=== PATIENT | female | born 2005 | race Caucasian/White ===

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

== ENCOUNTER 2024-07-15 21:56 | Inpatient (IN) ==
--- OUTSIDE RECORDS SUMMARY | 2024-07-15 22:02 | External Medical Summary ---
Author Name Unknown Address Unknown Organization R1WR:[facility] [address] [place] [address] Laboratory Report Ordering Provider Test Date Status EDMAR CRYSTAL 06/17/2024 04:29:00 Final Observation Date Value Abnormality Reference (Units ) Status WBC 06/17/2024 05:36 9.4 4.0-10.0 (X10E+09/L) Final RBC 06/17/2024 05:36 3.50 Below low normal 3.9-5.2 (X10E+12/L) Final Hemoglobin 06/17/2024 05:36 10.5 Below low normal 11.2-15.7 (g/dL) Final Hematocrit 06/17/2024 05:36 31.7 Below low normal 34-45 (%) Final MCV 06/17/2024 05:36 90.6 79-98 (fL) Final MCH 06/17/2024 05:36 30.0 26.0-32.0 (pg) Final MCHC 06/17/2024 05:36 33.1 32-36 (g/dL) Final Platelets 06/17/2024 05:36 233 150-370 (X10E+09/L) Final RDW 06/17/2024 05:36 14.0 11.7-14.4 (%) Final Neutrophils 06/17/2024 05:36 58.6 34.0-71.1 (%) Final Lymphocytes 06/17/2024 05:36 32.8 19.3-51.7 (%) Final Monocytes 06/17/2024 05:36 5.3 4.7-12.5 (%) Final Eosinophils 06/17/2024 05:36 3.0 0.7-5.8 (%) Final Basophils 06/17/2024 05:36 0.3 0.1-1.2 (%) Final Absolute Neutrophils 06/17/2024 05:36 5.48 1.6-6.1 (X10E+09/L) Final Absolute Lymphocytes 06/17/2024 05:36 3.07 1.2-3.7 (X10E+09/L) Final Absolute Monocytes 06/17/2024 05:36 0.50 0.2-0.9 (X10E+09/L) Final Absolute Eosinophils 06/17/2024 05:36 0.28 0.0-0.4 (X10E+09/L) Final Absolute Basophils 06/17/2024 05:36 0.03 0.0-0.1 (X10E+09/L) Final Absolute NRBC 06/17/2024 05:36 0.02 Above high normal 0 (X10E+09/L) Final Nucleated RBC 06/17/2024 05:36 0.2 0.0-0.2 (/100 WBC) Final Performing Location [facility] [address] [place] [address]
--- OUTSIDE RECORDS SUMMARY | 2024-07-15 22:02 | External Medical Summary ---
Author Name Unknown Address Unknown Organization R1WR:[facility] [address] [place] [address] Laboratory Report Ordering Provider Test Date Status BRANDON METZGER 07/09/2024 04:33:00 Final Observation Date Value Abnormality Reference (Units ) Status WBC 07/09/2024 04:55 9.6 4.0-10.0 (X10E+09/L) Final RBC 07/09/2024 04:55 3.01 Below low normal 3.9-5.2 (X10E+12/L) Final Hemoglobin 07/09/2024 04:55 8.5 Below low normal 11.2-15.7 (g/dL) Final Hematocrit 07/09/2024 04:55 27.3 Below low normal 34-45 (%) Final MCV 07/09/2024 04:55 90.7 79-98 (fL) Final MCH 07/09/2024 04:55 28.2 26.0-32.0 (pg) Final MCHC 07/09/2024 04:55 31.1 Below low normal 32-36 (g/dL) Final Platelets 07/09/2024 04:55 471 Above high normal 150-370 (X10E+09/L) Final RDW 07/09/2024 04:55 14.5 Above high normal 11.7-14.4 (%) Final Neutrophils 07/09/2024 04:55 63.4 34.0-71.1 (%) Final Lymphocytes 07/09/2024 04:55 26.5 19.3-51.7 (%) Final Monocytes 07/09/2024 04:55 7.0 4.7-12.5 (%) Final Eosinophils 07/09/2024 04:55 2.2 0.7-5.8 (%) Final Basophils 07/09/2024 04:55 0.9 0.1-1.2 (%) Final Absolute Neutrophils 07/09/2024 04:55 6.09 1.6-6.1 (X10E+09/L) Final Absolute Lymphocytes 07/09/2024 04:55 2.54 1.2-3.7 (X10E+09/L) Final Absolute Monocytes 07/09/2024 04:55 0.67 0.2-0.9 (X10E+09/L) Final Absolute Eosinophils 07/09/2024 04:55 0.21 0.0-0.4 (X10E+09/L) Final Absolute Basophils 07/09/2024 04:55 0.09 0.0-0.1 (X10E+09/L) Final Absolute NRBC 07/09/2024 04:55 0.00 0 (X10E+09/L) Final Nucleated RBC 07/09/2024 04:55 0.0 0.0-0.2 (/100 WBC) Final Performing Location [facility] [address] [place] [address]
--- OUTSIDE RECORDS SUMMARY | 2024-07-15 22:02 | External Medical Summary ---
Author Name Unknown Address Unknown Organization R1WR:[facility] [address] [place] [address] Laboratory Report Ordering Provider Test Date Status MAHNAZ MICHAEL 07/02/2024 05:50:00 Carla l Observation Date Value Abnormality Reference (Units ) Status WBC 07/02/2024 06:36 10.8 Above high normal 4.0-10.0 (X10E+09/L) Final RBC 07/02/2024 06:36 3.22 Below low normal 3.9-5.2 (X10E+12/L) Final Hemoglobin 07/02/2024 06:36 9.4 Below low normal 11.2-15.7 (g/dL) Final Hematocrit 07/02/2024 06:36 30.0 Below low normal 34-45 (%) Final MCV 07/02/2024 06:36 93.2 79-98 (fL) Final MCH 07/02/2024 06:36 29.2 26.0-32.0 (pg) Final MCHC 07/02/2024 06:36 31.3 Below low normal 32-36 (g/dL) Final Platelets 07/02/2024 06:36 574 Above high normal 150-370 (X10E+09/L) Final RDW 07/02/2024 06:36 15.0 Above high normal 11.7-14.4 (%) Final Neutrophils 07/02/2024 06:36 79.2 Above high normal 34.0-71.1 (%) Final Lymphocytes 07/02/2024 06:36 12.0 Below low normal 19.3-51.7 (%) Final Monocytes 07/02/2024 06:36 6.2 4.7-12.5 (%) Final Eosinophils 07/02/2024 06:36 1.6 0.7-5.8 (%) Final Basophils 07/02/2024 06:36 1.0 0.1-1.2 (%) Final Absolute Neutrophils 07/02/2024 06:36 8.52 Above high normal 1.6-6.1 (X10E+09/L) Final Absolute Lymphocytes 07/02/2024 06:36 1.29 1.2-3.7 (X10E+09/L) Final Absolute Monocytes 07/02/2024 06:36 0.67 0.2-0.9 (X10E+09/L) Final Absolute Eosinophils 07/02/2024 06:36 0.17 0.0-0.4 (X10E+09/L) Final Absolute Basophils 07/02/2024 06:36 0.11 Above high normal 0.0-0.1 (X10E+09/L) Final Absolute NRBC 07/02/2024 06:36 0.00 0 (X10E+09/L) Final Nucleated RBC 07/02/2024 06:36 0.0 0.0-0.2 (/100 WBC) Final Performing Location [facility] [address] [place] [address]
--- OUTSIDE RECORDS SUMMARY | 2024-07-15 22:02 | External Medical Summary ---
Author Name Unknown Address Unknown Organization R1WR:[facility] [address] [place] [address] Laboratory Report Ordering Provider Test Date Status ELISA MIGUEL III 07/15/2024 10:52:00 Final Observation Date Value Abnormality Reference (Units ) Status WBC 07/15/2024 11:48 10.0 4.0-10.0 (X10E+09/L) Final RBC 07/15/2024 11:48 3.31 Below low normal 3.9-5.2 (X10E+12/L) Final Hemoglobin 07/15/2024 11:48 8.9 Below low normal 11.2-15.7 (g/dL) Final Hematocrit 07/15/2024 11:48 28.7 Below low normal 34-45 (%) Final MCV 07/15/2024 11:48 86.7 79-98 (fL) Final MCH 07/15/2024 11:48 26.9 26.0-32.0 (pg) Final MCHC 07/15/2024 11:48 31.0 Below low normal 32-36 (g/dL) Final Platelets 07/15/2024 11:48 445 Above high normal 150-370 (X10E+09/L) Final RDW 07/15/2024 11:48 14.7 Above high normal 11.7-14.4 (%) Final Neutrophils 07/15/2024 11:48 72.8 Above high normal 34.0-71.1 (%) Final Lymphocytes 07/15/2024 11:48 20.3 19.3-51.7 (%) Final Monocytes 07/15/2024 11:48 4.7 4.7-12.5 (%) Final Eosinophils 07/15/2024 11:48 1.7 0.7-5.8 (%) Final Basophils 07/15/2024 11:48 0.5 0.1-1.2 (%) Final Absolute Neutrophils 07/15/2024 11:48 7.30 Above high normal 1.6-6.1 (X10E+09/L) Final Absolute Lymphocytes 07/15/2024 11:48 2.03 1.2-3.7 (X10E+09/L) Final Absolute Monocytes 07/15/2024 11:48 0.47 0.2-0.9 (X10E+09/L) Final Absolute Eosinophils 07/15/2024 11:48 0.17 0.0-0.4 (X10E+09/L) Final Absolute Basophils 07/15/2024 11:48 0.05 0.0-0.1 (X10E+09/L) Final Absolute NRBC 07/15/2024 11:48 0.00 0 (X10E+09/L) Final Nucleated RBC 07/15/2024 11:48 0.0 0.0-0.2 (/100 WBC) Final Performing Location [facility] [address] [place] [address]
--- OUTSIDE RECORDS SUMMARY | 2024-07-15 22:02 | External Medical Summary ---
Author Name Unknown Address Unknown Organization R1WR:[facility] [address] [place] [address] Laboratory Report Ordering Provider Test Date Status EDMRA CRYSTAL 06/16/2024 06:35:00 Final Observation Date Value Abnormality Reference (Units ) Status Magnesium 06/16/2024 07:09 1.8 1.6-2.6 (mg/d L) Final Performing Location [facility] [address] [place] [address]
--- OUTSIDE RECORDS SUMMARY | 2024-07-15 22:02 | External Medical Summary ---
Author Name Unknown Address Unknown Organization R1WR:[facility] [address] [place] [address] Laboratory Report Ordering Provider Test Date Status JOY MELENDEZ 06/17/2024 12:45:00 Final Observation Date Value Abnormality Reference (Units ) Status Urine Clarity 06/17/2024 14:34 Clear CLER Final Urine Color 06/17/2024 14:34 Yellow YELL Final Specific [place], Urine 06/17/2024 14:34 1.029 Above high normal 1.000-1.025 Final Urine pH 06/17/2024 14:34 7.0 5.0-8.0 Final Urine Leukocyte Esterase 06/17/2024 14:34 Negative NEGAT Final Urine Nitrites 06/17/2024 14:34 Negative NEGAT Final Protein, Urine 06/17/2024 14:34 Negative NEGAT (mg/dL) Final Glucose, Urine 06/17/2024 14:34 Negative NEGAT (mg/dL) Final Urine Ketones 06/17/2024 14:34 Negative NEGAT Final Urine Urobilinogen 06/17/2024 14:34 1.0 0.0-1.0 (mg/dL) Final The total absence of urobili nogen cannot be detected. Values up to 1 mg/dL are usually considered normal. Urine Bilirubin 06/17/2024 14:34 Negative NEGAT Final Blood, Urine 06/17/2024 14:34 Negative NEGAT Final Urine WBC 06/17/2024 14:34 0 0-5 (/hpf) Fi nal Urine RBC 06/17/2024 14:34 0 0-4 (/hpf) Fi nal Urine Bacteria 06/17/2024 14:34 None NONE (/h pf) Final Epithelial Cells 06/17/2024 14:34 7 Above high eugenio l 0-5 (/lpf) Final Urine Casts 06/17/2024 14:34 1 Above high normal 0 ( /lpf) Final Casts are considered Hyaline Casts unless otherwise noted. Performing Location [facility] [address] [place] [address]
--- OUTSIDE RECORDS SUMMARY | 2024-07-15 22:02 | External Medical Summary ---
Author Name Unknown Address Unknown Organization R1WR:[facility] [address] [place] [address] Laboratory Report Ordering Provider Test Date Status JULIOMARELY 06/14/2024 05:32:00 Final Observation Date Value Abnormality Reference (Units ) Status Vitamin D 25-Hydroxy 06/14/2024 06:11 17 Below low no rmal 30-100 (ng/mL) Final Deficiency: <20 ng/mL Insuff iciency: 20-29 ng/mL Sufficiency: 30-100 ng/mL Performing Location [facility] [address] [place] [address]
--- OUTSIDE RECORDS SUMMARY | 2024-07-15 22:02 | External Medical Summary ---
Author Name Unknown Address Unknown Organization R1WR:[facility] [address] [place] [address] Laboratory Report Ordering Provider Test Date Status EDMAR CRYSTAL 06/16/2024 06:35:00 Final Observation Date Value Abnormality Reference (Units ) Status Phosphorus 06/16/2024 07:09 2.8 2.5-4.6 (mg/ dL) Final Performing Location [facility] [address] [place] [address]
--- OUTSIDE RECORDS SUMMARY | 2024-07-15 22:02 | External Medical Summary ---
Author Name Unknown Address Unknown Organization R1WR:[facility] [address] [place] [address] Laboratory Report Ordering Provider Test Date Status BRANDON METZGER 07/10/2024 04:34:00 Final Observation Date Value Abnormality Reference (Units ) Status WBC 07/10/2024 05:17 10.6 Above high normal 4.0-10.0 (X10E+09/L) Final RBC 07/10/2024 05:17 3.11 Below low normal 3.9-5.2 (X10E+12/L) Final Hemoglobin 07/10/2024 05:17 8.7 Below low normal 11.2-15.7 (g/dL) Final Hematocrit 07/10/2024 05:17 27.9 Below low normal 34-45 (%) Final MCV 07/10/2024 05:17 89.7 79-98 (fL) Final MCH 07/10/2024 05:17 28.0 26.0-32.0 (pg) Final MCHC 07/10/2024 05:17 31.2 Below low normal 32-36 (g/dL) Final Platelets 07/10/2024 05:17 495 Above high normal 150-370 (X10E+09/L) Final RDW 07/10/2024 05:17 14.6 Above high normal 11.7-14.4 (%) Final Neutrophils 07/10/2024 05:17 65.9 34.0-71.1 (%) Final Lymphocytes 07/10/2024 05:17 25.1 19.3-51.7 (%) Final Monocytes 07/10/2024 05:17 6.0 4.7-12.5 (%) Final Eosinophils 07/10/2024 05:17 2.2 0.7-5.8 (%) Final Basophils 07/10/2024 05:17 0.8 0.1-1.2 (%) Final Absolute Neutrophils 07/10/2024 05:17 6.98 Above high normal 1.6-6.1 (X10E+09/L) Final Absolute Lymphocytes 07/10/2024 05:17 2.66 1.2-3.7 (X10E+09/L) Final Absolute Monocytes 07/10/2024 05:17 0.64 0.2-0.9 (X10E+09/L) Final Absolute Eosinophils 07/10/2024 05:17 0.23 0.0-0.4 (X10E+09/L) Final Absolute Basophils 07/10/2024 05:17 0.08 0.0-0.1 (X10E+09/L) Final Absolute NRBC 07/10/2024 05:17 0.00 0 (X10E+09/L) Final Nucleated RBC 07/10/2024 05:17 0.0 0.0-0.2 (/100 WBC) Final Performing Location [facility] [address] [place] [address]
--- OUTSIDE RECORDS SUMMARY | 2024-07-15 22:02 | External Medical Summary ---
Author Name Unknown Address Unknown Organization R1WR:[facility] [address] [place] [address] Laboratory Report Ordering Provider Test Date Status BRANDON METZGER 07/10/2024 04:34:00 Final Observation Date Value Abnormality Reference (Units ) Status Glucose 07/10/2024 05:36 97 70-99 (mg/dL) Final The reference interval for F asting glucose is 70 to 99. The reference interval for Random Glucose is 70 to 139. BUN 07/10/2024 05:36 12 9-23 (mg/dL) Final Creatinine 07/10/2024 05:36 0.50 Below low normal 0.55- 1.02 (mg/dL) Final eGFR 07/10/2024 05:36 137 >59 (mL/min/1 .73m2) Final eGFR = 142 X [min(Scr/k,1)]* *a [max(Scr/k,1)-1.200x0.9938age X 1.012 [if female] Where Scr is serum creatinine; k is 0.7 for females and 0.9 males; a is -0.241 for females and -0.302 for males; min indicates the minimum of Scr/k or 1, max indicates the maximum of Scr/k or 1 Sodium 07/10/2024 05:36 135 Below low normal 136-14 5 (mmol/L) Final Potassium 07/10/2024 05:36 4.2 3.4-5.0 (mmol /L) Final Chloride 07/10/2024 05:36 99 98-112 (mmol/ L) Final CO2 07/10/2024 05:36 27 20-31 (mmol/L ) Final Anion Gap 07/10/2024 05:36 13 6-15 (mmol/L) Final Calcium 07/10/2024 05:36 10.0 8.3-10.6 (mg/ dL) Final Performing Location [facility] [address] [place] [address]
--- OUTSIDE RECORDS SUMMARY | 2024-07-15 22:02 | External Medical Summary ---
Author Name Unknown Address Unknown Organization R1WR:[facility] [address] [place] [address] Laboratory Report Ordering Provider Test Date Status EDMAR CRYSTAL 06/17/2024 04:29:00 Final Observation Date Value Abnormality Reference (Units ) Status Glucose 06/17/2024 05:57 80 70-99 (mg/dL) Final The reference interval for F asting glucose is 70 to 99. The reference interval for Random Glucose is 70 to 139. BUN 06/17/2024 05:57 15 9-23 (mg/dL) Final Creatinine 06/17/2024 05:57 0.61 0.55-1.02 (m g/dL) Final eGFR 06/17/2024 05:57 131 >59 (mL/min/1 .73m2) Final eGFR = 142 X [min(Scr/k,1)]* *a [max(Scr/k,1)-1.200x0.9938age X 1.012 [if female] Where Scr is serum creatinine; k is 0.7 for females and 0.9 males; a is -0.241 for females and -0.302 for males; min indicates the minimum of Scr/k or 1, max indicates the maximum of Scr/k or 1 Sodium 06/17/2024 05:57 142 136-145 (mmol /L) Final Potassium 06/17/2024 05:57 3.6 3.4-5.0 (mmol /L) Final Chloride 06/17/2024 05:57 105 98-112 (mmol/ L) Final CO2 06/17/2024 05:57 32 Above high normal 20-31 (mmol/L) Final Anion Gap 06/17/2024 05:57 9 6-15 (mmol/L) Final Calcium 06/17/2024 05:57 8.8 8.3-10.6 (mg/ dL) Final Performing Location [facility] [address] [place] [address]
--- OUTSIDE RECORDS SUMMARY | 2024-07-15 22:02 | External Medical Summary ---
Author Name Unknown Address Unknown Organization R1WR:[facility] [address] [place] [address] Laboratory Report Ordering Provider Test Date Status EDMAR CRYSTAL 06/17/2024 04:29:00 Final Observation Date Value Abnormality Reference (Units ) Status Magnesium 06/17/2024 05:57 1.8 1.6-2.6 (mg/d L) Final Performing Location [facility] [address] [place] [address]
--- OUTSIDE RECORDS SUMMARY | 2024-07-15 22:02 | External Medical Summary ---
Author Name Unknown Address Unknown Organization R1WR:[facility] [address] [place] [address] Laboratory Report Ordering Provider Test Date Status EDMAR CRYSTAL 06/15/2024 08:57:00 Final Observation Date Value Abnormality Reference (Units ) Status Glucose 06/15/2024 09:45 166 Above high normal 70-99 (mg/dL) Final The reference interval for F asting glucose is 70 to 99. The reference interval for Random Glucose is 70 to 139. BUN 06/15/2024 09:45 8 Below low normal 9-23 ( mg/dL) Final Creatinine 06/15/2024 09:45 0.55 0.55-1.02 (m g/dL) Final eGFR 06/15/2024 09:45 134 >59 (mL/min/1 .73m2) Final eGFR = 142 X [min(Scr/k,1)]* *a [max(Scr/k,1)-1.200x0.9938age X 1.012 [if female] Where Scr is serum creatinine; k is 0.7 for females and 0.9 males; a is -0.241 for females and -0.302 for males; min indicates the minimum of Scr/k or 1, max indicates the maximum of Scr/k or 1 Sodium 06/15/2024 09:45 139 136-145 (mmol /L) Final Potassium 06/15/2024 09:45 3.9 3.4-5.0 (mmol /L) Final Chloride 06/15/2024 09:45 106 98-112 (mmol/ L) Final CO2 06/15/2024 09:45 29 20-31 (mmol/L ) Final Anion Gap 06/15/2024 09:45 8 6-15 (mmol/L) Final Calcium 06/15/2024 09:45 8.7 8.3-10.6 (mg/ dL) Final Performing Location [facility] [address] [place] [address]
--- OUTSIDE RECORDS SUMMARY | 2024-07-15 22:02 | External Medical Summary ---
Author Name Unknown Address Unknown Organization R1WR:[facility] [address] [place] [address] Laboratory Report Ordering Provider Test Date Status MARELY KIM 06/14/2024 05:32:00 Final Observation Date Value Abnormality Reference (Units ) Status Magnesium 06/14/2024 06:11 2.2 1.6-2.6 (mg/d L) Final Performing Location [facility] [address] [place] [address]
--- OUTSIDE RECORDS SUMMARY | 2024-07-15 22:02 | External Medical Summary ---
Author Name Unknown Address Unknown Organization R1WR:[facility] [address] [place] [address] Laboratory Report Ordering Provider Test Date Status BRANDON METZGER 07/08/2024 06:55:00 Final Observation Date Value Abnormality Reference (Units ) Status WBC 07/08/2024 07:21 10.0 4.0-10.0 (X10E+09/L) Final RBC 07/08/2024 07:21 3.03 Below low normal 3.9-5.2 (X10E+12/L) Final Hemoglobin 07/08/2024 07:21 8.7 Below low normal 11.2-15.7 (g/dL) Final Hematocrit 07/08/2024 07:21 27.4 Below low normal 34-45 (%) Final MCV 07/08/2024 07:21 90.4 79-98 (fL) Final MCH 07/08/2024 07:21 28.7 26.0-32.0 (pg) Final MCHC 07/08/2024 07:21 31.8 Below low normal 32-36 (g/dL) Final Platelets 07/08/2024 07:21 466 Above high normal 150-370 (X10E+09/L) Final RDW 07/08/2024 07:21 14.5 Above high normal 11.7-14.4 (%) Final Neutrophils 07/08/2024 07:21 67.5 34.0-71.1 (%) Final Lymphocytes 07/08/2024 07:21 24.0 19.3-51.7 (%) Final Monocytes 07/08/2024 07:21 5.6 4.7-12.5 (%) Final Eosinophils 07/08/2024 07:21 2.2 0.7-5.8 (%) Final Basophils 07/08/2024 07:21 0.7 0.1-1.2 (%) Final Absolute Neutrophils 07/08/2024 07:21 6.72 Above high normal 1.6-6.1 (X10E+09/L) Final Absolute Lymphocytes 07/08/2024 07:21 2.39 1.2-3.7 (X10E+09/L) Final Absolute Monocytes 07/08/2024 07:21 0.56 0.2-0.9 (X10E+09/L) Final Absolute Eosinophils 07/08/2024 07:21 0.22 0.0-0.4 (X10E+09/L) Final Absolute Basophils 07/08/2024 07:21 0.07 0.0-0.1 (X10E+09/L) Final Absolute NRBC 07/08/2024 07:21 0.00 0 (X10E+09/L) Final Nucleated RBC 07/08/2024 07:21 0.0 0.0-0.2 (/100 WBC) Final Performing Location [facility] [address] [place] [address]
--- OUTSIDE RECORDS SUMMARY | 2024-07-15 22:02 | External Medical Summary ---
Author Name Unknown Address Unknown Organization R1WR:[facility] [address] [place] [address] Laboratory Report Ordering Provider Test Date Status EDMAR CRYSTAL 06/18/2024 06:43:00 Final Observation Date Value Abnormality Reference (Units ) Status Glucose 06/18/2024 07:26 95 70-99 (mg/dL) Final The reference interval for F asting glucose is 70 to 99. The reference interval for Random Glucose is 70 to 139. BUN 06/18/2024 07:26 10 9-23 (mg/dL) Final Creatinine 06/18/2024 07:26 0.58 0.55-1.02 (m g/dL) Final eGFR 06/18/2024 07:26 133 >59 (mL/min/1 .73m2) Final eGFR = 142 X [min(Scr/k,1)]* *a [max(Scr/k,1)-1.200x0.9938age X 1.012 [if female] Where Scr is serum creatinine; k is 0.7 for females and 0.9 males; a is -0.241 for females and -0.302 for males; min indicates the minimum of Scr/k or 1, max indicates the maximum of Scr/k or 1 Sodium 06/18/2024 07:26 136 136-145 (mmol /L) Final Potassium 06/18/2024 07:26 4.2 3.4-5.0 (mmol /L) Final Chloride 06/18/2024 07:26 100 98-112 (mmol/ L) Final CO2 06/18/2024 07:26 30 20-31 (mmol/L ) Final Anion Gap 06/18/2024 07:26 10 6-15 (mmol/L) Final Calcium 06/18/2024 07:26 9.3 8.3-10.6 (mg/ dL) Final Performing Location [facility] [address] [place] [address]
--- OUTSIDE RECORDS SUMMARY | 2024-07-15 22:02 | External Medical Summary ---
Author Name Unknown Address Unknown Organization R1WR:[facility] [address] [place] [address] Laboratory Report Ordering Provider Test Date Status EDMAR CRYSTAL 06/15/2024 08:57:00 Final Observation Date Value Abnormality Reference (Units ) Status Phosphorus 06/15/2024 09:45 2.6 2.5-4.6 (mg/ dL) Final Performing Location [facility] [address] [place] [address]
--- OUTSIDE RECORDS SUMMARY | 2024-07-15 22:02 | External Medical Summary ---
Author Name Unknown Address Unknown Organization R1WR:[facility] [address] [place] [address] Laboratory Report Ordering Provider Test Date Status EDMAR CRYSTAL 06/18/2024 06:43:00 Final Observation Date Value Abnormality Reference (Units ) Status WBC 06/18/2024 07:17 11.4 Above high normal 4.0-1 0.0 (X10E+09/L) Final Slide checked and on file. RBC 06/18/2024 07:17 3.59 Below low normal 3.9-5. 2 (X10E+12/L) Final Hemoglobin 06/18/2024 07:17 10.9 Below low normal 11.2- 15.7 (g/dL) Final Hematocrit 06/18/2024 07:17 32.3 Below low normal 34-45 (%) Final MCV 06/18/2024 07:17 90.0 79-98 (fL) Fi nal MCH 06/18/2024 07:17 30.4 26.0-32.0 (pg ) Final MCHC 06/18/2024 07:17 33.7 32-36 (g/dL) Final Platelets 06/18/2024 07:17 269 150-370 (X10E +09/L) Final RDW 06/18/2024 07:17 13.7 11.7-14.4 (%) Final Neutrophils 06/18/2024 07:17 69.6 34.0-71.1 ( %) Final Lymphocytes 06/18/2024 07:17 22.4 19.3-51.7 ( %) Final Monocytes 06/18/2024 07:17 4.4 Below low normal 4.7-12 .5 (%) Final Eosinophils 06/18/2024 07:17 3.4 0.7-5.8 (%) Final Basophils 06/18/2024 07:17 0.2 0.1-1.2 (%) F inal Absolute Neutrophils 06/18/2024 07:17 7.97 Abo ve high normal 1.6-6.1 (X10E+09/L) Final Absolute Lymphocytes 06/18/2024 07:17 2.56 1. 2-3.7 (X10E+09/L) Final Absolute Monocytes 06/18/2024 07:17 0.50 0.2- 0.9 (X10E+09/L) Final Absolute Eosinophils 06/18/2024 07:17 0.39 0. 0-0.4 (X10E+09/L) Final Absolute Basophils 06/18/2024 07:17 0.02 0.0- 0.1 (X10E+09/L) Final Absolute NRBC 06/18/2024 07:17 0.00 0 (X10E+0 9/L) Final Nucleated RBC 06/18/2024 07:17 0.0 0.0-0.2 ( /100 WBC) Final Performing Location [facility] [address] [place] [address]
--- OUTSIDE RECORDS SUMMARY | 2024-07-15 22:02 | External Medical Summary ---
Author Name Unknown Address Unknown Organization R1WR:[facility] [address] [place] [address] Laboratory Report Ordering Provider Test Date Status MARELY KIM 06/14/2024 05:32:00 Final Observation Date Value Abnormality Reference (Units ) Status WBC 06/14/2024 05:49 8.0 4.0-10.0 (X10E+09/L) Final RBC 06/14/2024 05:49 3.26 Below low normal 3.9-5.2 (X10E+12/L) Final Hemoglobin 06/14/2024 05:49 9.7 Below low normal 11.2-15.7 (g/dL) Final Hematocrit 06/14/2024 05:49 28.8 Below low normal 34-45 (%) Final MCV 06/14/2024 05:49 88.3 79-98 (fL) Final MCH 06/14/2024 05:49 29.8 26.0-32.0 (pg) Final MCHC 06/14/2024 05:49 33.7 32-36 (g/dL) Final Platelets 06/14/2024 05:49 176 150-370 (X10E+09/L) Final RDW 06/14/2024 05:49 14.4 11.7-14.4 (%) Final Neutrophils 06/14/2024 05:49 72.0 Above high normal 34.0-71.1 (%) Final Lymphocytes 06/14/2024 05:49 20.3 19.3-51.7 (%) Final Monocytes 06/14/2024 05:49 7.2 4.7-12.5 (%) Final Eosinophils 06/14/2024 05:49 0.4 Below low normal 0.7-5.8 (%) Final Basophils 06/14/2024 05:49 0.1 0.1-1.2 (%) Final Absolute Neutrophils 06/14/2024 05:49 5.73 1.6-6.1 (X10E+09/L) Final Absolute Lymphocytes 06/14/2024 05:49 1.61 1.2-3.7 (X10E+09/L) Final Absolute Monocytes 06/14/2024 05:49 0.57 0.2-0.9 (X10E+09/L) Final Absolute Eosinophils 06/14/2024 05:49 0.03 0.0-0.4 (X10E+09/L) Final Absolute Basophils 06/14/2024 05:49 0.01 0.0-0.1 (X10E+09/L) Final Absolute NRBC 06/14/2024 05:49 0.00 0 (X10E+09/L) Final Nucleated RBC 06/14/2024 05:49 0.0 0.0-0.2 (/100 WBC) Final Performing Location [facility] [address] [place] [address]
--- OUTSIDE RECORDS SUMMARY | 2024-07-15 22:02 | External Medical Summary ---
Author Name Unknown Address Unknown Organization R1WR:[facility] [address] [place] [address] Laboratory Report Ordering Provider Test Date Status NATANAEL DE LA FUENTE 07/06/2024 19:10:00 Final Observation Date Value Abnormality Reference (Units ) Status Specimen Description 07/06/2024 21:12 Wound Final Special Requests 07/06/2024 21:12 L KNEE SURGICAL WD Final Culture 07/08/2024 13:33 No Anaerobes isolated Final Report Status 07/08/2024 13:33 Final Result 07/08/2024 Final Performing Location [facility] [address] [place] [address]
--- OUTSIDE RECORDS SUMMARY | 2024-07-15 22:02 | External Medical Summary ---
Author Name Unknown Address Unknown Organization R1WR:[facility] [address] [place] [address] Laboratory Report Ordering Provider Test Date Status EDMAR CRYSTAL 06/16/2024 06:35:00 Final Observation Date Value Abnormality Reference (Units ) Status Glucose 06/16/2024 07:09 86 70-99 (mg/dL) Final The reference interval for F asting glucose is 70 to 99. The reference interval for Random Glucose is 70 to 139. BUN 06/16/2024 07:09 12 9-23 (mg/dL) Final Creatinine 06/16/2024 07:09 0.60 0.55-1.02 (m g/dL) Final eGFR 06/16/2024 07:09 132 >59 (mL/min/1 .73m2) Final eGFR = 142 X [min(Scr/k,1)]* *a [max(Scr/k,1)-1.200x0.9938age X 1.012 [if female] Where Scr is serum creatinine; k is 0.7 for females and 0.9 males; a is -0.241 for females and -0.302 for males; min indicates the minimum of Scr/k or 1, max indicates the maximum of Scr/k or 1 Sodium 06/16/2024 07:09 141 136-145 (mmol /L) Final Potassium 06/16/2024 07:09 3.5 3.4-5.0 (mmol /L) Final Chloride 06/16/2024 07:09 106 98-112 (mmol/ L) Final CO2 06/16/2024 07:09 31 20-31 (mmol/L ) Final Anion Gap 06/16/2024 07:09 7 6-15 (mmol/L) Final Calcium 06/16/2024 07:09 8.5 8.3-10.6 (mg/ dL) Final Performing Location [facility] [address] [place] [address]
--- OUTSIDE RECORDS SUMMARY | 2024-07-15 22:02 | External Medical Summary ---
Author Name Unknown Address Unknown Organization R1WR:[facility] [address] [place] [address] Laboratory Report Ordering Provider Test Date Status MARELY KIM 06/14/2024 05:32:00 Final Observation Date Value Abnormality Reference (Units ) Status Glucose 06/14/2024 06:11 110 Above high normal 70-99 (mg/dL) Final The reference interval for F asting glucose is 70 to 99. The reference interval for Random Glucose is 70 to 139. BUN 06/14/2024 06:11 7 Below low normal 9-23 ( mg/dL) Final Creatinine 06/14/2024 06:11 0.54 Below low normal 0.55- 1.02 (mg/dL) Final eGFR 06/14/2024 06:11 135 >59 (mL/min/1 .73m2) Final eGFR = 142 X [min(Scr/k,1)]* *a [max(Scr/k,1)-1.200x0.9938age X 1.012 [if female] Where Scr is serum creatinine; k is 0.7 for females and 0.9 males; a is -0.241 for females and -0.302 for males; min indicates the minimum of Scr/k or 1, max indicates the maximum of Scr/k or 1 Sodium 06/14/2024 06:11 143 136-145 (mmol /L) Final Potassium 06/14/2024 06:11 3.6 3.4-5.0 (mmol /L) Final Chloride 06/14/2024 06:11 108 98-112 (mmol/ L) Final CO2 06/14/2024 06:11 29 20-31 (mmol/L ) Final Anion Gap 06/14/2024 06:11 9 6-15 (mmol/L) Final Calcium 06/14/2024 06:11 8.5 8.3-10.6 (mg/ dL) Final Performing Location [facility] [address] [place] [address]
--- OUTSIDE RECORDS SUMMARY | 2024-07-15 22:02 | External Medical Summary ---
Author Name Unknown Address Unknown Organization R1WR:[facility] [address] [place] [address] Laboratory Report Ordering Provider Test Date Status BRANDON METZGER 07/08/2024 06:55:00 Final Observation Date Value Abnormality Reference (Units ) Status Glucose 07/08/2024 07:34 102 Above high normal 70-99 (mg/dL) Final The reference interval for F asting glucose is 70 to 99. The reference interval for Random Glucose is 70 to 139. BUN 07/08/2024 07:34 10 9-23 (mg/dL) Final Creatinine 07/08/2024 07:34 0.43 Below low normal 0.55- 1.02 (mg/dL) Final eGFR 07/08/2024 07:34 142 >59 (mL/min/1 .73m2) Final eGFR = 142 X [min(Scr/k,1)]* *a [max(Scr/k,1)-1.200x0.9938age X 1.012 [if female] Where Scr is serum creatinine; k is 0.7 for females and 0.9 males; a is -0.241 for females and -0.302 for males; min indicates the minimum of Scr/k or 1, max indicates the maximum of Scr/k or 1 Sodium 07/08/2024 07:34 137 136-145 (mmol /L) Final Potassium 07/08/2024 07:34 4.1 3.4-5.0 (mmol /L) Final Chloride 07/08/2024 07:34 102 98-112 (mmol/ L) Final CO2 07/08/2024 07:34 28 20-31 (mmol/L ) Final Anion Gap 07/08/2024 07:34 11 6-15 (mmol/L) Final Calcium 07/08/2024 07:34 9.4 8.3-10.6 (mg/ dL) Final Performing Location [facility] [address] [place] [address]
--- OUTSIDE RECORDS SUMMARY | 2024-07-15 22:02 | External Medical Summary ---
Author Name Unknown Address Unknown Organization R1WR:[facility] [address] [place] [address] Laboratory Report Ordering Provider Test Date Status EDMAR CRYSTAL 06/15/2024 08:57:00 Final Observation Date Value Abnormality Reference (Units ) Status Magnesium 06/15/2024 09:45 2.1 1.6-2.6 (mg/d L) Final Performing Location [facility] [address] [place] [address]
--- OUTSIDE RECORDS SUMMARY | 2024-07-15 22:02 | External Medical Summary ---
Author Name Unknown Address Unknown Organization R1WR:[facility] [address] [place] [address] Laboratory Report Ordering Provider Test Date Status ELISA MIGUEL III 07/15/2024 10:52:00 Final Observation Date Value Abnormality Reference (Units ) Status Glucose 07/15/2024 12:07 122 Above high normal 70-99 (mg/dL) Final The reference interval for F asting glucose is 70 to 99. The reference interval for Random Glucose is 70 to 139. BUN 07/15/2024 12:07 10 9-23 (mg/dL) Final Creatinine 07/15/2024 12:07 0.52 Below low normal 0.55- 1.02 (mg/dL) Final eGFR 07/15/2024 12:07 136 >59 (mL/min/1 .73m2) Final eGFR = 142 X [min(Scr/k,1)]* *a [max(Scr/k,1)-1.200x0.9938age X 1.012 [if female] Where Scr is serum creatinine; k is 0.7 for females and 0.9 males; a is -0.241 for females and -0.302 for males; min indicates the minimum of Scr/k or 1, max indicates the maximum of Scr/k or 1 Sodium 07/15/2024 12:07 137 136-145 (mmol /L) Final Potassium 07/15/2024 12:07 4.0 3.4-5.0 (mmol /L) Final Chloride 07/15/2024 12:07 100 98-112 (mmol/ L) Final CO2 07/15/2024 12:07 27 20-31 (mmol/L ) Final Anion Gap 07/15/2024 12:07 14 6-15 (mmol/L) Final Calcium 07/15/2024 12:07 10.0 8.3-10.6 (mg/ dL) Final Total Protein 07/15/2024 12:07 7.5 5.7-8.2 ( g/dL) Final Albumin 07/15/2024 12:07 2.8 Below low normal 3.4-5. 0 (g/dL) Final Bilirubin, Total 07/15/2024 12:07 0.2 0.0-0. 8 (mg/dL) Final AST 07/15/2024 12:07 9 Below low normal 13-40 (U/L) Final ALT 07/15/2024 12:07 16 7-40 (U/L) Fi nal Alkaline Phosphatase 07/15/2024 12:07 118 Above high n ormal 46-116 (U/L) Final Performing Location [facility] [address] [place] [address]
--- OUTSIDE RECORDS SUMMARY | 2024-07-15 22:02 | External Medical Summary ---
Author Name Unknown Address Unknown Organization R1WR:[facility] [address] [facility] [place] [address] Laboratory Report Ordering Provider Test Date Status NATANAEL DE LA FUENTE 07/06/2024 19:10:00 Final Observation Date Value Abnormality Reference (Units ) Status Specimen Description 07/06/2024 21:12 Wound Final Special Requests 07/06/2024 21:12 L KNEE SURGICAL WD Final Gram Stain 07/07/2024 07:21 1+ Polys Final No organisms present Culture 07/07/2024 10:58 2+ Serratia marcescens Final Report Status 07/08/2024 08:50 Final Result 07/08/2024 Final Organism 07/08/2024 08:50 2+ Serratia marcescens Final METHOD 07/08/2024 08:50 Microscan GEOVANI-u g/ml (SARAH) Final Cefepime 07/08/2024 08:50 <=2 Sensitive Susceptible Final Ceftazidime 07/08/2024 08:50 <=1 Sensitive Susceptible Final Ceftriaxone 07/08/2024 08:50 <=1 Sensitive Susceptible Final Ciprofloxacin 07/08/2024 08:50 <=0.25 Sensitive Susceptible Final Ertapenem 07/08/2024 08:50 <=0.5 Sensitive Susceptible Final Gentamicin 07/08/2024 08:50 <=2 Sensitive Susceptible Final Levofloxacin 07/08/2024 08:50 <=0.5 Sensitive Susceptible Final Meropenem 07/08/2024 08:50 <=1 Sensitive Susceptible Final Piperacillin/Tazobactam 07/08/2024 08:50 <=8 Sensitive Susce ptible Final Tetracycline 07/08/2024 08:50 >8 Resistant Resistant Final Tobramycin 07/08/2024 08:50 4 Sensitive Susceptible Final Sulfa/Trimethoprim 07/08/2024 08:50 <=0.5/9.5 Sensitive Susc eptible Final Performing Location [facility] [address] [place] [address]
--- OUTSIDE RECORDS SUMMARY | 2024-07-15 22:02 | External Medical Summary ---
Author Name Unknown Address Unknown Organization R1WR:[facility] [address] [place] [address] Laboratory Report Ordering Provider Test Date Status BRANDON METZGER 07/09/2024 04:33:00 Final Observation Date Value Abnormality Reference (Units ) Status Vitamin D 25-Hydroxy 07/09/2024 05:14 34 30 -100 (ng/mL) Final Deficiency: <20 ng/mL Insuff iciency: 20-29 ng/mL Sufficiency: 30-100 ng/mL Performing Location [facility] [address] [place] [address]
--- OUTSIDE RECORDS SUMMARY | 2024-07-15 22:02 | External Medical Summary ---
Author Name Unknown Address Unknown Organization R1WR:[facility] [address] [place] [address] Laboratory Report Ordering Provider Test Date Status EDMAR CRYSTAL 06/16/2024 06:35:00 Final Observation Date Value Abnormality Reference (Units ) Status WBC 06/16/2024 06:43 9.0 4.0-10.0 (X10E+09/L) Final RBC 06/16/2024 06:43 3.37 Below low normal 3.9-5.2 (X10E+12/L) Final Hemoglobin 06/16/2024 06:43 10.2 Below low normal 11.2-15.7 (g/dL) Final Hematocrit 06/16/2024 06:43 30.4 Below low normal 34-45 (%) Final MCV 06/16/2024 06:43 90.2 79-98 (fL) Final MCH 06/16/2024 06:43 30.3 26.0-32.0 (pg) Final MCHC 06/16/2024 06:43 33.6 32-36 (g/dL) Final Platelets 06/16/2024 06:43 218 150-370 (X10E+09/L) Final RDW 06/16/2024 06:43 13.7 11.7-14.4 (%) Final Neutrophils 06/16/2024 06:43 58.9 34.0-71.1 (%) Final Lymphocytes 06/16/2024 06:43 33.2 19.3-51.7 (%) Final Monocytes 06/16/2024 06:43 5.3 4.7-12.5 (%) Final Eosinophils 06/16/2024 06:43 1.7 0.7-5.8 (%) Final Basophils 06/16/2024 06:43 0.9 0.1-1.2 (%) Final Absolute Neutrophils 06/16/2024 06:43 5.29 1.6-6.1 (X10E+09/L) Final Absolute Lymphocytes 06/16/2024 06:43 2.98 1.2-3.7 (X10E+09/L) Final Absolute Monocytes 06/16/2024 06:43 0.48 0.2-0.9 (X10E+09/L) Final Absolute Eosinophils 06/16/2024 06:43 0.15 0.0-0.4 (X10E+09/L) Final Absolute Basophils 06/16/2024 06:43 0.08 0.0-0.1 (X10E+09/L) Final Absolute NRBC 06/16/2024 06:43 0.04 Above high normal 0 (X10E+09/L) Final Nucleated RBC 06/16/2024 06:43 0.4 Above high normal 0.0-0.2 (/100 WBC) Final Performing Location [facility] [address] [place] [address]
--- OUTSIDE RECORDS SUMMARY | 2024-07-15 22:02 | External Medical Summary ---
Author Name Unknown Address Unknown Organization R1WR:[facility] [address] [place] [address] Laboratory Report Ordering Provider Test Date Status BRANDON METZGER 07/09/2024 04:33:00 Final Observation Date Value Abnormality Reference (Units ) Status Glucose 07/09/2024 05:07 102 Above high normal 70-99 (mg/dL) Final The reference interval for F asting glucose is 70 to 99. The reference interval for Random Glucose is 70 to 139. BUN 07/09/2024 05:07 11 9-23 (mg/dL) Final Creatinine 07/09/2024 05:07 0.42 Below low normal 0.55- 1.02 (mg/dL) Final eGFR 07/09/2024 05:07 143 >59 (mL/min/1 .73m2) Final eGFR = 142 X [min(Scr/k,1)]* *a [max(Scr/k,1)-1.200x0.9938age X 1.012 [if female] Where Scr is serum creatinine; k is 0.7 for females and 0.9 males; a is -0.241 for females and -0.302 for males; min indicates the minimum of Scr/k or 1, max indicates the maximum of Scr/k or 1 Sodium 07/09/2024 05:07 138 136-145 (mmol /L) Final Potassium 07/09/2024 05:07 4.3 3.4-5.0 (mmol /L) Final Chloride 07/09/2024 05:07 102 98-112 (mmol/ L) Final CO2 07/09/2024 05:07 28 20-31 (mmol/L ) Final Anion Gap 07/09/2024 05:07 13 6-15 (mmol/L) Final Calcium 07/09/2024 05:07 9.6 8.3-10.6 (mg/ dL) Final Performing Location [facility] [address] [place] [address]
--- OUTSIDE RECORDS SUMMARY | 2024-07-15 22:02 | External Medical Summary ---
Author Name Unknown Address Unknown Organization R1WR:[facility] [address] [place] [address] Laboratory Report Ordering Provider Test Date Status MARELY KIM 06/14/2024 05:32:00 Final Observation Date Value Abnormality Reference (Units ) Status Phosphorus 06/14/2024 06:11 2.7 2.5-4.6 (mg/ dL) Final Performing Location [facility] [address] [place] [address]
--- OUTSIDE RECORDS SUMMARY | 2024-07-15 22:02 | External Medical Summary ---
Author Name Unknown Address Unknown Organization R1WR:[facility] [address] [place] [address] Laboratory Report Ordering Provider Test Date Status EDMAR CRYSTAL 06/15/2024 08:57:00 Final Observation Date Value Abnormality Reference (Units ) Status WBC 06/15/2024 09:27 8.1 4.0-10.0 (X10E+09/L) Final RBC 06/15/2024 09:27 3.34 Below low normal 3.9-5.2 (X10E+12/L) Final Hemoglobin 06/15/2024 09:27 10.0 Below low normal 11.2-15.7 (g/dL) Final Hematocrit 06/15/2024 09:27 30.3 Below low normal 34-45 (%) Final MCV 06/15/2024 09:27 90.7 79-98 (fL) Final MCH 06/15/2024 09:27 29.9 26.0-32.0 (pg) Final MCHC 06/15/2024 09:27 33.0 32-36 (g/dL) Final Platelets 06/15/2024 09:27 199 150-370 (X10E+09/L) Final RDW 06/15/2024 09:27 13.6 11.7-14.4 (%) Final Neutrophils 06/15/2024 09:27 83.6 Above high normal 34.0-71.1 (%) Final Lymphocytes 06/15/2024 09:27 12.2 Below low normal 19.3-51.7 (%) Final Monocytes 06/15/2024 09:27 3.8 Below low normal 4.7-12.5 (%) Final Eosinophils 06/15/2024 09:27 0.0 Below low normal 0.7-5.8 (%) Final Basophils 06/15/2024 09:27 0.4 0.1-1.2 (%) Final Absolute Neutrophils 06/15/2024 09:27 6.74 Above high normal 1.6-6.1 (X10E+09/L) Final Absolute Lymphocytes 06/15/2024 09:27 0.98 Below low normal 1.2-3.7 (X10E+09/L) Final Absolute Monocytes 06/15/2024 09:27 0.31 0.2-0.9 (X10E+09/L) Final Absolute Eosinophils 06/15/2024 09:27 0.00 0.0-0.4 (X10E+09/L) Final Absolute Basophils 06/15/2024 09:27 0.03 0.0-0.1 (X10E+09/L) Final Absolute NRBC 06/15/2024 09:27 0.00 0 (X10E+09/L) Final Nucleated RBC 06/15/2024 09:27 0.0 0.0-0.2 (/100 WBC) Final Performing Location [facility] [address] [place] [address]
--- OUTSIDE RECORDS SUMMARY | 2024-07-15 22:02 | External Medical Summary ---
Author Name Unknown Address Unknown Organization R1WR:[facility] [address] [place] [address] Laboratory Report Ordering Provider Test Date Status EDMAR CRYSTAL 06/18/2024 06:43:00 Final Observation Date Value Abnormality Reference (Units ) Status Magnesium 06/18/2024 07:26 1.9 1.6-2.6 (mg/d L) Final Performing Location [facility] [address] [place] [address]
--- OUTSIDE RECORDS SUMMARY | 2024-07-15 22:02 | External Medical Summary ---
Author Name Unknown Address Unknown Organization R1WR:[facility] [address] [place] [address] Laboratory Report Ordering Provider Test Date Status EDMAR CRYSTAL 06/17/2024 04:29:00 Final Observation Date Value Abnormality Reference (Units ) Status Phosphorus 06/17/2024 05:57 4.6 2.5-4.6 (mg/ dL) Final Performing Location [facility] [address] [place] [address]
--- OUTSIDE RECORDS SUMMARY | 2024-07-15 22:03 | External Medical Summary ---
Author Name Unknown Address Unknown Organization R1WR:[facility] [address] [place] [address] Laboratory Report Ordering Provider Test Date Status EDMAR CRYSTAL 06/13/2024 08:40:00 Final Observation Date Value Abnormality Reference (Units ) Status WBC 06/13/2024 08:53 7.9 4.0-10.0 (X10E+09/L) Final RBC 06/13/2024 08:53 3.60 Below low normal 3.9-5.2 (X10E+12/L) Final Hemoglobin 06/13/2024 08:53 10.9 Below low normal 11.2-15.7 (g/dL) Final Hematocrit 06/13/2024 08:53 32.1 Below low normal 34-45 (%) Final MCV 06/13/2024 08:53 89.2 79-98 (fL) Final MCH 06/13/2024 08:53 30.3 26.0-32.0 (pg) Final MCHC 06/13/2024 08:53 34.0 32-36 (g/dL) Final Platelets 06/13/2024 08:53 176 150-370 (X10E+09/L) Final RDW 06/13/2024 08:53 14.4 11.7-14.4 (%) Final Absolute NRBC 06/13/2024 08:53 0.00 0 (X10E+09/L) Final Absolute Neutrophils 06/13/2024 08:53 6.71 Above high normal 1.6-6.1 (X10E+09/L) Final Absolute Lymphocytes 06/13/2024 08:53 0.73 Below low normal 1.2-3.7 (X10E+09/L) Final Absolute Monocytes 06/13/2024 08:53 0.39 0.2-0.9 (X10E+09/L) Final Absolute Eosinophils 06/13/2024 08:53 0.00 0.0-0.4 (X10E+09/L) Final Absolute Basophils 06/13/2024 08:53 0.02 0.0-0.1 (X10E+09/L) Final Nucleated RBC 06/13/2024 08:53 0.0 0.0-0.2 (/100 WBC) Final Neutrophils 06/13/2024 08:53 84.6 Above high normal 34.0-71.1 (%) Final Lymphocytes 06/13/2024 08:53 9.3 Below low normal 19.3-51.7 (%) Final Monocytes 06/13/2024 08:53 5.0 4.7-12.5 (%) Final Eosinophils 06/13/2024 08:53 0.0 Below low normal 0.7-5.8 (%) Final Basophils 06/13/2024 08:53 0.3 0.1-1.2 (%) Final Performing Location [facility] [address] [place] [address]
--- OUTSIDE RECORDS SUMMARY | 2024-07-15 22:03 | External Medical Summary ---
Author Name Unknown Address Unknown Organization R1WR:[facility] [address] [place] [address] Laboratory Report Ordering Provider Test Date Status EDMAR CRYSTAL 06/13/2024 08:40:00 Final Observation Date Value Abnormality Reference (Units ) Status Glucose 06/13/2024 09:15 160 Above high normal 70-99 (mg/dL) Final The reference interval for F asting glucose is 70 to 99. The reference interval for Random Glucose is 70 to 139. BUN 06/13/2024 09:15 <5 Below low normal 9-23 ( mg/dL) Final Creatinine 06/13/2024 09:15 0.61 0.55-1.02 (m g/dL) Final eGFR 06/13/2024 09:15 131 >59 (mL/min/1 .73m2) Final eGFR = 142 X [min(Scr/k,1)]* *a [max(Scr/k,1)-1.200x0.9938age X 1.012 [if female] Where Scr is serum creatinine; k is 0.7 for females and 0.9 males; a is -0.241 for females and -0.302 for males; min indicates the minimum of Scr/k or 1, max indicates the maximum of Scr/k or 1 Sodium 06/13/2024 09:15 139 136-145 (mmol /L) Final Potassium 06/13/2024 09:15 3.7 3.4-5.0 (mmol /L) Final Hemolysis: Results may be ad versely affected. Recommend recollect. Chloride 06/13/2024 09:15 108 98-112 (mmol/ L) Final CO2 06/13/2024 09:15 24 20-31 (mmol/L ) Final Anion Gap 06/13/2024 09:15 11 6-15 (mmol/L) Final Calcium 06/13/2024 09:15 8.6 8.3-10.6 (mg/ dL) Final Performing Location [facility] [address] [place] [address]
--- OUTSIDE RECORDS SUMMARY | 2024-07-15 22:03 | External Medical Summary ---
Author Name Unknown Address Unknown Organization R1WR:[facility] [address] [place] [address] Laboratory Report Ordering Provider Test Date Status NAMAN BOYD 06/12/2024 16:50:00 Final Observation Date Value Abnormality Reference (Units ) Status Lactic Acid 06/12/2024 17:15 1.9 0.4-2.0 (mm ol/L) Final If the time between specimen collection and laboratory receipt is 30 minutes or greater, the lactate result may be falsely elevated. The laboratory recommends sample recollection and analysis. Performing Location [facility] [address] [place] [address]
--- OUTSIDE RECORDS SUMMARY | 2024-07-15 22:03 | External Medical Summary ---
Author Name Unknown Address Unknown Organization R1WR:[facility] [address] [place] [address] Laboratory Report Ordering Provider Test Date Status EDMAR CRYSTAL 06/13/2024 08:40:00 Final Observation Date Value Abnormality Reference (Units ) Status Phosphorus 06/13/2024 09:15 2.3 Below low normal 2.5-4 .6 (mg/dL) Final Performing Location [facility] [address] [place] [address]
--- OUTSIDE RECORDS SUMMARY | 2024-07-15 22:03 | External Medical Summary ---
Author Name Unknown Address Unknown Organization R1WR:[facility] [address] [place] [address] Laboratory Report Ordering Provider Test Date Status EDMAR CRYSTAL 06/13/2024 08:40:00 Final Observation Date Value Abnormality Reference (Units ) Status Magnesium 06/13/2024 09:15 1.9 1.6-2.6 (mg/d L) Final Performing Location [facility] [address] [place] [address]
[2024-07-15] MEDS: ONDANSETRON INJ 2 MG/ML 2 ML VIAL IV STA (22:44)
[2024-07-15] MEDS: fentaNYL citrate PF 100 MCG/2 ML VIAL IV PRN (22:45)
[2024-07-15 22:56] LABS: Basophils # (auto) 0.05 K/uL (0.00-0.20); Basophils % (auto) 0.5 %; Eosinophils # (auto) 0.16 K/uL (0.00-0.50); Eosinophils % (auto) 1.5 %; Hematocrit (blood only) 31.1 % (37.0-47.0); Hemoglobin 9.5 g/dl (12.0-16.0); Immature Granulocytes # (auto) 0.23 K/uL (0.01-0.20); Immature Granulocytes % (auto) 2.1 %; Lymphocytes # (auto) 2.26 K/uL (1.20-3.40); Lymphocytes % (auto) 20.6 %; Mean Corpuscular Hemoglobin 26.7 pg (25.0-34.0); Mean Corpuscular Hgb Conc 30.5 g/dL (32.0-36.0); Mean Corpuscular Volume 87.4 fL (80.0-100.0); Mean Platelet Volume 8.5 fL (9.4-12.4); Monocytes % (auto) 5.5 %; Neutrophils # (auto) 7.68 K/uL (1.40-6.50); Neutrophils % (auto) 69.8 %; Platelet Count 503 K/uL (130-400); RDW Coefficient of Variation 14.5 % (11.5-14.5); RDW Standard Deviation 46.6 fL (36.4-46.3); Red Blood Count 3.56 M/uL (4.20-5.40); White Blood Count 10.98 K/ul (4.8-10.8)
[2024-07-15 23:08] LABS: Pregnancy Test, Serum Negative (Negative)
[2024-07-15 23:12] LABS: Alanine Aminotransferase 13 U/L (7-52); Albumin Globulin Ratio 0.9 (0.9-2); Albumin Level 3.8 gm/dl (3.4-5.0); Alkaline Phosphatase 104 U/L (34-104); Anion Gap 13 (3-11); Aspartate Aminotransferase 11 U/L (13-39); Bilirubin,Total 0.3 mg/dl (0.2-1.0); Blood Urea Nitrogen 11 mg/dl (6-23); Calcium 9.7 mg/dl (8.6-10.3); Carbon Dioxide 26 mmol/L (21-32); Chloride 98 mmol/L (98-107); Creatine Kinase 32 U/L (26-192); Est GFR (African American) > 150.0 ml/min; Est GFR (Non-African American) 139.3 ml/min; Globulin 4.2 gm/dl (2.5-4.0); Glucose 110 mg/dl (70-99(Fasting)); Magnesium 1.8 mg/dl (1.7-2.4); Sodium 137 mmol/L (136-145)
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
[2024-07-16] MEDS: hydrOXYzine HCl 25 MG TAB PO STA (03:24)
[2024-07-16 04:49] LABS: Amorphous Sediment Urine Present (None Prsent); Appearance Urine Turbid (Clear); Bacteria Urine Automated 1+ (None Seen); Bilirubin Urine Negative (Negative); Blood Urine Negative (Negative); Cast Urine Automated 0-2 /lpf (0-2); Color Urine Yellow; Epithelial Cell Urine Auto 0-2 /hpf (0-2); Glucose Urine UA Negative (Negative); Ketones Urine Negative (Negative); Leukocyte Esterase Urine 3+ (Negative); Nitrite Urine Negative (Negative); Protein Urine Trace (Negative); Specific Gravity Urine 1.023 (1.000-1.030); Urobilinogen Urine Negative (Negative); WBC Urine Automated >50 /hpf (0-5)
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
[2024-07-16] MEDS ORDERED: POLYETHYLENE (MIRALAX) 17 GM PACK PO PRN (06:23)
[2024-07-16] MEDS: HYDROmorphone INJ 0.5 MG/0.5 ML SYR IV PRN (07:33)
[2024-07-16] MEDS: SODIUM CHLORIDE 0.9% 1,000 ML IV SCH (08:01)
[2024-07-16] MEDS: APIXABAN 2.5 MG TAB PO SCH (09:13)
[2024-07-16] MEDS: METHOCARBAMOL 750 MG TABLET PO SCH (09:13)
[2024-07-16] MEDS: TAMSULOSIN HCL 0.4 MG CAP PO SCH (09:14)
[2024-07-16] MEDS: SERTRALINE HCL 100 MG TABLET PO SCH (09:14)
[2024-07-16] MEDS: ATOMOXETINE HCL 10 MG CAPSULE PO SCH (09:14)
[2024-07-16] MEDS: hydrOXYzine HCl 25 MG TAB PO SCH (09:14)
[2024-07-16] MEDS: ACETAMINOPHEN 500 MG TAB PO SCH (09:18)
--- NOTE | 2024-07-16 10:29 | Communication Note ---
Date of Service: July 16, 2024 Patient seen Drowsy but arousable. Stated back pain is well controlled at this time Reports only right knee pain at this time Reported she had surgery on left knee, was then discharged to [facility] and then had surgery on right knee and was just discharged to [facility] but presents yesterday for worsening back and right knee pain. Has dressing and brace on right knee Continue pain control Will consult Ortho spine tomorrow regarding fractures noted on spine. Get records from facility Other plans as detailed in H/P this AM
[2024-07-16] MEDS: levoFLOXacin 750 MG TAB PO SCH (11:54)
[2024-07-16] MEDS: ONDANSETRON INJ 2 MG/ML 2 ML VIAL IV PRN (13:59)
[2024-07-16] MEDS: oxyCODONE HCL IR 5 MG TAB (IMMEDIATE RELEASE) PO PRN (18:49)
[2024-07-16] MEDS: DOXEPIN HCL 50 MG CAPSULE PO SCH (20:10)
[2024-07-16] MEDS: DOCUSATE SODIUM/SENNA 50/8.6MG TAB PO SCH (20:10)
[2024-07-17 06:25] LABS: Basophils # (auto) 0.03 K/uL (0.00-0.20); Basophils % (auto) 0.4 %; Eosinophils # (auto) 0.13 K/uL (0.00-0.50); Eosinophils % (auto) 1.6 %; Hematocrit (blood only) 27.6 % (37.0-47.0); Hemoglobin 8.7 g/dl (12.0-16.0); Immature Granulocytes # (auto) 0.16 K/uL (0.01-0.20); Immature Granulocytes % (auto) 1.9 %; Lymphocytes # (auto) 1.86 K/uL (1.20-3.40); Lymphocytes % (auto) 22.6 %; Mean Corpuscular Hemoglobin 27.5 pg (25.0-34.0); Mean Corpuscular Hgb Conc 31.5 g/dL (32.0-36.0); Mean Corpuscular Volume 87.3 fL (80.0-100.0); Mean Platelet Volume 8.5 fL (9.4-12.4); Monocytes # (auto) 0.54 K/uL (0.11-0.59); Monocytes % (auto) 6.6 %; Neutrophils # (auto) 5.51 K/uL (1.40-6.50); Neutrophils % (auto) 66.9 %; Platelet Count 463 K/uL (130-400); RDW Coefficient of Variation 14.7 % (11.5-14.5); RDW Standard Deviation 47.5 fL (36.4-46.3); Red Blood Count 3.16 M/uL (4.20-5.40); White Blood Count 8.23 K/ul (4.8-10.8)
[2024-07-17 06:30] LABS: Anion Gap 10 (3-11); BUN Creatinine Ratio 18.8 (10-20); Blood Urea Nitrogen 9 mg/dl (6-23); Calcium 9.5 mg/dl (8.6-10.3); Carbon Dioxide 28 mmol/L (21-32); Chloride 101 mmol/L (98-107); Creatinine Clr Calc Pharmacy 211.5 ml/min; Est GFR (African American) > 150.0 ml/min; Est GFR (Non-African American) 141.2 ml/min; Glucose 96 mg/dl (70-99(Fasting)); Magnesium 1.9 mg/dl (1.7-2.4); Potassium 3.7 mmol/L (3.5-5.1); Sodium 139 mmol/L (136-145)
[2024-07-17 07:45] LABS: Estimated Average Glucose 128 mg/dl; Hemoglobin A1C 6.1 % (4.5-5.6)
[2024-07-17] MEDS ORDERED: oxyCODONE HCL IR 5 MG TAB (IMMEDIATE RELEASE) PO PRN (07:51)
[2024-07-17] MEDS: oxyCODONE HCL IR 5 MG TAB (IMMEDIATE RELEASE) PO PRN (08:09)
[2024-07-17] MEDS: ERGOCALCIFEROL 1250 MCG (50,000 UNITS) CAP PO SCH (08:13)
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
--- NOTE | 2024-07-18 06:17 | Electrocardiogram Report ---
Test Reason : Blood Pressure : */* mmHG Vent. Rate : 102 BPM Atrial Rate : 102 BPM P-R Int : 140 ms QRS Dur : 82 ms QT Int : 358 ms P-R-T Axes : 30 54 19 degrees QTcB Int : 466 ms Sinus tachycardia Otherwise normal ECG When compared with ECG of 07-Aug-2023 21:10, No significant change was found Confirmed by Mikey Balderas ([id number]) on 07/18/2024 6:16:55 AM Referred By: REFERRED SELF Confirmed By: Mikey Balderas
[2024-07-18 08:50] LABS: Hematocrit (blood only) 27.5 % (37.0-47.0); Hemoglobin 8.7 g/dl (12.0-16.0); Mean Corpuscular Hemoglobin 27.1 pg (25.0-34.0); Mean Corpuscular Hgb Conc 31.6 g/dL (32.0-36.0); Mean Corpuscular Volume 85.7 fL (80.0-100.0); Mean Platelet Volume 8.4 fL (9.4-12.4); Platelet Count 481 K/uL (130-400); RDW Coefficient of Variation 14.9 % (11.5-14.5); Red Blood Count 3.21 M/uL (4.20-5.40)
[2024-07-18 08:59] LABS: Anion Gap 12 (3-11); BUN Creatinine Ratio 19.2 (10-20); Blood Urea Nitrogen 10 mg/dl (6-23); Calcium 9.4 mg/dl (8.6-10.3); Carbon Dioxide 25 mmol/L (21-32); Chloride 100 mmol/L (98-107); Creatinine Clr Calc Pharmacy 195.2 ml/min; Est GFR (African American) > 150.0 ml/min; Est GFR (Non-African American) 137.5 ml/min; Glucose 145 mg/dl (70-99(Fasting)); Potassium 3.9 mmol/L (3.5-5.1); Sodium 137 mmol/L (136-145)
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
[2024-07-18] MEDS: LIDOCAINE 5% 1 PATCH TD SCH (13:16)
[2024-07-18] MEDS: HYDROmorphone INJ 0.5 MG/0.5 ML SYR IV PRN (18:41)
[2024-07-19 05:58] LABS: Hematocrit (blood only) 27.2 % (37.0-47.0); Hemoglobin 8.6 g/dl (12.0-16.0); Mean Corpuscular Hemoglobin 27.7 pg (25.0-34.0); Mean Corpuscular Hgb Conc 31.6 g/dL (32.0-36.0); Mean Corpuscular Volume 87.5 fL (80.0-100.0); Mean Platelet Volume 8.4 fL (9.4-12.4); Platelet Count 491 K/uL (130-400); RDW Coefficient of Variation 15.1 % (11.5-14.5); RDW Standard Deviation 48.1 fL (36.4-46.3); Red Blood Count 3.11 M/uL (4.20-5.40); White Blood Count 8.71 K/ul (4.8-10.8)
[2024-07-19 06:07] LABS: Anion Gap 10 (3-11); BUN Creatinine Ratio 17.3 (10-20); Blood Urea Nitrogen 9 mg/dl (6-23); Calcium 9.5 mg/dl (8.6-10.3); Carbon Dioxide 27 mmol/L (21-32); Chloride 99 mmol/L (98-107); Creatinine Clr Calc Pharmacy 195.2 ml/min; Est GFR (African American) > 150.0 ml/min; Est GFR (Non-African American) 137.5 ml/min; Glucose 99 mg/dl (70-99(Fasting)); Potassium 3.9 mmol/L (3.5-5.1); Sodium 136 mmol/L (136-145)
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
[2024-07-21 07:52] VITALS: BP 103/56; RESP 17; TEMP 98.4; O2SAT 94
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
[2024-07-21 12:04] VITALS: PULSE 99
== END 2024-07-21 13:13 | DRG 552 ==
LOC: ED 21:56 → 3E 07-16 05:06 → SUATTDRO 07-16 05:06 → 3E 07-16 05:45

== ENCOUNTER 2024-07-24 19:16 | Observation (INO) ==
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
[2024-07-24 19:49] LABS: iSTAT Creatinine 0.4 mg/dl; iSTAT Hemoglobin 10.9 g/dl (12.0-16.0); iSTAT Ionized Calcium 1.16 mmol/l; iSTAT Potassium 3.5 mmol/L (3.3-5.0)
[2024-07-24 19:59] LABS: Alanine Aminotransferase 10 U/L (7-52); Albumin Globulin Ratio 1.1 (0.9-2); Albumin Level 4.1 gm/dl (3.4-5.0); Alkaline Phosphatase 87 U/L (34-104); Anion Gap 13 (3-11); Aspartate Aminotransferase 14 U/L (13-39); BUN Creatinine Ratio 13.7 (10-20); Bilirubin,Total 0.3 mg/dl (0.2-1.0); Blood Urea Nitrogen 7 mg/dl (6-23); Calcium 9.6 mg/dl (8.6-10.3); Carbon Dioxide 23 mmol/L (21-32); Chloride 102 mmol/L (98-107); Creatinine Clr Calc Pharmacy 202.5 ml/min; Est GFR (African American) > 150.0 ml/min; Est GFR (Non-African American) 138.4 ml/min; Globulin 3.8 gm/dl (2.5-4.0); Glucose 107 mg/dl (70-99(Fasting)); Potassium 3.5 mmol/L (3.5-5.1); Sodium 138 mmol/L (136-145); Total Protein 7.9 gm/dl (6.0-8.3)
[2024-07-24 20:10] LABS: Basophils # (auto) 0.05 K/uL (0.00-0.20); Basophils % (auto) 0.5 %; Eosinophils # (auto) 0.21 K/uL (0.00-0.50); Eosinophils % (auto) 2.2 %; Hemoglobin 10.1 g/dl (12.0-16.0); Immature Granulocytes # (auto) 0.16 K/uL (0.01-0.20); Immature Granulocytes % (auto) 1.7 %; Lymphocytes # (auto) 2.31 K/uL (1.20-3.40); Lymphocytes % (auto) 23.9 %; Mean Corpuscular Hemoglobin 26.9 pg (25.0-34.0); Mean Corpuscular Hgb Conc 31.6 g/dL (32.0-36.0); Mean Corpuscular Volume 85.6 fL (80.0-100.0); Mean Platelet Volume 8.2 fL (9.4-12.4); Monocytes # (auto) 0.57 K/uL (0.11-0.59); Monocytes % (auto) 5.9 %; Neutrophils # (auto) 6.36 K/uL (1.40-6.50); Neutrophils % (auto) 65.8 %; Platelet Count 521 K/uL (130-400); RDW Coefficient of Variation 15.2 % (11.5-14.5); RDW Standard Deviation 46.5 fL (36.4-46.3); Red Blood Count 3.75 M/uL (4.20-5.40); White Blood Count 9.66 K/ul (4.8-10.8)
--- NOTE | 2024-07-24 20:52 | CT Scan Report ---
Exam(s): CT C SPINE EXAM: CT Cervical Spine Without Intravenous Contrast CLINICAL HISTORY: Trauma. TECHNIQUE: Axial computed tomography images of the cervical spine without intravenous contrast. CTDI is 25.56 mGy and DLP is 444.35 mGy-cm. Automated exposure control was utilized for the study. A dose lowering technique was utilized adhering to the principles of ALARA. COMPARISON: No relevant prior studies available. FINDINGS: Vertebrae: The vertebral bodies are intact without acute osseous traumatic injury. Mild reversal of the normal cervical abscess is noted. No anterolisthesis or retrolisthesis is identified. The facet joints are well aligned without subluxation or dislocation. The pedicles, transverse processes and spinous processes are intact. Discs/spinal canal/neural foramina: No acute findings. No osseous spinal canal stenosis. Soft tissues: Unremarkable. IMPRESSION: No acute osseous traumatic injury or significant abnormal alignment involving the cervical spine. Electronically signed by: Jason Oviedo MD 07/24/24 20:51 PM
--- NOTE | 2024-07-24 20:54 | CT Scan Report ---
Exam(s): CT HEAD Without Contrast EXAM: CT Head Without Intravenous Contrast CLINICAL HISTORY: Trauma. TECHNIQUE: Axial computed tomography images of the head/brain without intravenous contrast. CTDI is 37.69 mGy and DLP is 624.41 mGy-cm. Automated exposure control was utilized for the study. A dose lowering technique was utilized adhering to the principles of ALARA. COMPARISON: CT head without contrast dated 01/26/2012 FINDINGS: Brain: No intracranial hemorrhage. No significant mass-effect. No cortical infarct. No significant white matter disease. Ventricles: No midline shift or ventricular mildly. Bones/joints: Unremarkable. No acute fracture. Soft tissues: No significant overlying acute traumatic soft tissue abnormality. No radiopaque foreign body. Sinuses: Unremarkable as visualized. No acute sinusitis. Mastoid air cells: Unremarkable as visualized. No mastoid effusion. IMPRESSION: No acute intracranial process identified. Electronically signed by: Jason Oviedo MD 07/24/24 20:53 PM
[2024-07-24] MEDS: POTASSIUM CHLORIDE PWD 20 MEQ PACK PO STA (22:35)
[2024-07-24] MEDS: NSS + 20MEQ KCL 20 MEQ/1,000 ML BAG IV ONE (22:35)
[2024-07-24] MEDS: MAGNESIUM SULFATE / D5W 1 GM/100 ML BAG IV ONE (22:35)
[2024-07-24] MEDS: ACETAMINOPHEN 1,000 MG/100 ML VIAL IV STA (22:59)
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
[2024-07-25] MEDS: oxyCODONE HCL IR 5 MG TAB (IMMEDIATE RELEASE) PO PRN (00:09)
--- NOTE | 2024-07-25 00:23 | CT Scan Report ---
Exam(s): CT RIGHT KNEE Without Contrast EXAM: CT Right Lower Extremity Without Intravenous Contrast, Knee CLINICAL HISTORY: pain, Eliquis, trauma. TECHNIQUE: Axial computed tomography images of the right knee without intravenous contrast. CTDI is 25.05 mGy and DLP is 513.32 mGy-cm. Automated exposure control was utilized for the study. A dose lowering technique was utilized adhering to the principles of ALARA. COMPARISON: No relevant prior studies available. FINDINGS: Bones/joints: Abnormal angulation at the knee joint with distraction/widening of the lateral compartment. Small volume hyperdense knee joint effusion is noted. There is an impacted appearance of the bone adjacent to a surgical tunnel involving the lateral condyle (series 301; images 42-48). This may represent postoperative changes; however, impaction injury is also a diagnostic consideration. Soft tissues: Extensive prior postsurgical changes with multiple tendon repair tunnels noted involving the distal femur, the tibia and fibula. Traumatic injury is suspected but evaluation of the tendon repair is limited by CT evaluation. However, there are abnormally positioned surgical anchors above the patella involving the anterior thigh, (series 2; images 16-22 and series 300; images 38-46). Subcutaneous fat stranding noted involving the anterior and medial aspect of the knee joint. No well-defined hematoma. No subcutaneous emphysema rated PICC foreign body. IMPRESSION: 1. Abnormal angulation at the knee joint with distraction/widening of the lateral compartment. Small volume hyperdense knee joint effusion is noted. 2. Extensive prior postsurgical changes with multiple tendon repair tunnels noted involving the distal femur, the tibia and fibula. Traumatic injury is suspected but evaluation of the tendon repair is limited by CT evaluation. However, there are abnormally positioned surgical anchors above the patella involving the anterior thigh, (series 2; images 16-22 and series 300; images 38-46). Findings are most consistent with traumatic tear with displacement of the tendon anchors. 3. Subcutaneous fat stranding noted involving the anterior and medial aspect of the knee joint. No well-defined hematoma. No subcutaneous emphysema rated PICC foreign body. Electronically signed by: Jason Oviedo MD 07/25/24 00:22 AM
[2024-07-25] MEDS: METHOCARBAMOL 750 MG TABLET PO SCH (01:41)
[2024-07-25] MEDS: GABAPENTIN 300 MG CAP PO SCH (01:41)
[2024-07-25] MEDS: DOXEPIN HCL 50 MG CAPSULE PO SCH (01:42)
[2024-07-25 04:40] LABS: Basophils # (auto) 0.04 K/uL (0.00-0.20); Basophils % (auto) 0.6 %; Eosinophils # (auto) 0.23 K/uL (0.00-0.50); Eosinophils % (auto) 3.5 %; Hematocrit (blood only) 28.4 % (37.0-47.0); Hemoglobin 8.7 g/dl (12.0-16.0); Immature Granulocytes # (auto) 0.11 K/uL (0.01-0.20); Immature Granulocytes % (auto) 1.7 %; Lymphocytes # (auto) 2.19 K/uL (1.20-3.40); Lymphocytes % (auto) 33.1 %; Mean Corpuscular Hemoglobin 26.8 pg (25.0-34.0); Mean Corpuscular Hgb Conc 30.6 g/dL (32.0-36.0); Mean Corpuscular Volume 87.4 fL (80.0-100.0); Mean Platelet Volume 8.1 fL (9.4-12.4); Monocytes # (auto) 0.51 K/uL (0.11-0.59); Monocytes % (auto) 7.7 %; Neutrophils # (auto) 3.53 K/uL (1.40-6.50); Neutrophils % (auto) 53.4 %; Platelet Count 447 K/uL (130-400); RDW Coefficient of Variation 15.4 % (11.5-14.5); RDW Standard Deviation 48.8 fL (36.4-46.3); Red Blood Count 3.25 M/uL (4.20-5.40); White Blood Count 6.61 K/ul (4.8-10.8)
[2024-07-25 04:44] LABS: Anion Gap 12 (3-11); BUN Creatinine Ratio 13.8 (10-20); Blood Urea Nitrogen 8 mg/dl (6-23); Calcium 8.9 mg/dl (8.6-10.3); Carbon Dioxide 24 mmol/L (21-32); Chloride 105 mmol/L (98-107); Creatinine Clr Calc Pharmacy 178.1 ml/min; Est GFR (African American) > 150.0 ml/min; Est GFR (Non-African American) 132.7 ml/min; Glucose 113 mg/dl (70-99(Fasting)); Potassium 3.4 mmol/L (3.5-5.1); Sodium 141 mmol/L (136-145)
--- NOTE | 2024-07-25 06:23 | Electrocardiogram Report ---
Test Reason : Blood Pressure : */* mmHG Vent. Rate : 110 BPM Atrial Rate : 110 BPM P-R Int : 128 ms QRS Dur : 82 ms QT Int : 330 ms P-R-T Axes : 25 29 18 degrees QTcB Int : 446 ms Sinus tachycardia Otherwise normal ECG When compared with ECG of 16-Jul-2024 13:54, No significant change was found Confirmed by Junior León ([id number]) on 07/25/2024 6:22:33 AM Referred By: Corin Calhountri Confirmed By: Junior León
[2024-07-25] MEDS: levoFLOXacin 750 MG TAB PO SCH (07:59)
[2024-07-25] MEDS: hydrOXYzine HCl 25 MG TAB PO SCH (07:59)
[2024-07-25] MEDS: ACETAMINOPHEN 325 MG TAB PO PRN (07:59)
[2024-07-25] MEDS: TAMSULOSIN HCL 0.4 MG CAP PO SCH (07:59)
[2024-07-25] MEDS: SERTRALINE HCL 100 MG TABLET PO SCH (07:59)
[2024-07-25] MEDS: ATOMOXETINE HCL 10 MG CAPSULE PO SCH (07:59)
[2024-07-25] MEDS: ACETAMINOPHEN 500 MG TAB PO SCH (08:01)
--- NOTE | 2024-07-25 08:10 | XRay Report ---
RIGHT KNEE 2 VIEWS CLINICAL HISTORY: Fall. Right knee injury. FINDINGS: AP and crosstable lateral views of the right knee are compared to study dated 02/09/2014. A traction device is in place, significantly degrading the lateral projection. The skeletal structures are well mineralized. There is evidence of ACL repair. No acute fracture is clearly seen. The lateral joint space appears widened. Tiny calcified joint bodies/fragments are suggested above the tibial tu berosity. The presence of a joint effusion cannot be assessed. Soft tissue swelling is seen around th e knee. IMPRESSION: 1. Soft tissue swelling with no clear radiographic evidence of acute fracture. 2. Postsurgical change is consistent with ACL repair. 3. The lateral joint space appears widened and small calcific joint bodies/fragments are noted. Electronically signed by: Tommy Momin M.D. 07/25/2024 8:08 AM
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
[2024-07-25] MEDS: HYDROmorphone HCL 2 MG TAB PO PRN (11:41)
[2024-07-25] MEDS: HYDROmorphone INJ 0.5 MG/0.5 ML SYR IV PRN (16:27)
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
[2024-07-25] MEDS: DOCUSATE SODIUM/SENNA 50/8.6MG TAB PO SCH (20:57)
[2024-07-25] MEDS: PROMETHAZINE 12.5 MG/50.5 ML BAG IV PRN (23:45)
[2024-07-26 07:37] LABS: Basophils # (auto) 0.06 K/uL (0.00-0.20); Basophils % (auto) 0.8 %; Eosinophils # (auto) 0.26 K/uL (0.00-0.50); Eosinophils % (auto) 3.5 %; Hematocrit (blood only) 28.5 % (37.0-47.0); Hemoglobin 8.9 g/dl (12.0-16.0); Immature Granulocytes # (auto) 0.16 K/uL (0.01-0.20); Immature Granulocytes % (auto) 2.2 %; Lymphocytes # (auto) 2.42 K/uL (1.20-3.40); Lymphocytes % (auto) 32.6 %; Mean Corpuscular Hemoglobin 27.2 pg (25.0-34.0); Mean Corpuscular Hgb Conc 31.2 g/dL (32.0-36.0); Mean Corpuscular Volume 87.2 fL (80.0-100.0); Mean Platelet Volume 8.1 fL (9.4-12.4); Monocytes # (auto) 0.56 K/uL (0.11-0.59); Monocytes % (auto) 7.5 %; Neutrophils # (auto) 3.96 K/uL (1.40-6.50); Neutrophils % (auto) 53.4 %; Platelet Count 425 K/uL (130-400); RDW Coefficient of Variation 15.7 % (11.5-14.5); RDW Standard Deviation 49.7 fL (36.4-46.3); Red Blood Count 3.27 M/uL (4.20-5.40); White Blood Count 7.42 K/ul (4.8-10.8)
[2024-07-26 07:57] LABS: Anion Gap 10 (3-11); BUN Creatinine Ratio 13.3 (10-20); Blood Urea Nitrogen 6 mg/dl (6-23); Calcium 9.2 mg/dl (8.6-10.3); Carbon Dioxide 25 mmol/L (21-32); Chloride 104 mmol/L (98-107); Creatinine Clr Calc Pharmacy 221.3 ml/min; Est GFR (African American) > 150.0 ml/min; Est GFR (Non-African American) 144.2 ml/min; Glucose 98 mg/dl (70-99(Fasting)); Potassium 3.9 mmol/L (3.5-5.1); Sodium 139 mmol/L (136-145)
[2024-07-26 09:30] LABS: Appearance Urine Clear (Clear); Bilirubin Urine Negative (Negative); Blood Urine Negative (Negative); Color Urine Yellow; Glucose Urine UA Negative (Negative); Ketones Urine Negative (Negative); Leukocyte Esterase Urine Negative (Negative); Nitrite Urine Negative (Negative); Protein Urine Negative (Negative); Specific Gravity Urine 1.022 (1.000-1.030); Urobilinogen Urine Negative (Negative); pH Urine 5.5 (4.5-7.5)
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
[2024-07-26] MEDS: ACETAMINOPHEN 500 MG TAB PO PRN (15:37)
[2024-07-26] MEDS ORDERED: ONDANSETRON INJ 2 MG/ML 2 ML VIAL IV PRN (16:46)
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
[2024-07-26 19:22] VITALS: RESP 16
[2024-07-27 03:38] VITALS: BP 122/79; TEMP 97.9; O2SAT 96
[2024-07-27 07:19] VITALS: PULSE 80
== END 2024-07-27 08:31 | disposition short-term general hospital (02) ==
LOC: ED 19:16 → EDINP 19:16 → SUATTDRO 23:22 → 2W 07-25 00:19